=== PATIENT | female | born 2000 | race African-American/Black ===

== ENCOUNTER 2019-11-06 12:13 | Emergency (ER) | payer SELFPAY ==
[~2019-11-06] VITALS: Ht 152.4 cm; Wt 91.6 kg
[2019-11-06] MEDS ORDERED: ACETAMINOPHEN 325 MG TAB PO ONE (12:30)
[2019-11-06] MEDS ORDERED: LACTATED RINGER'S 1,000 ML INJ ONE (12:45)
[2019-11-06 12:49] LABS: BASOPHILS % 0.4 % (0.0-1.0); EOSINOPHILS # (AUTO) 0.3 (0.0-0.4); HEMATOCRIT 38.8 % (34.2-44.1); HEMOGLOBIN 12.4 g/dL (12.0-16.0); LYMPHOCYTES # (AUTO) 1.9 (1.0-3.2); LYMPHOCYTES % 23.7 % (18.0-39.1); MEAN CORPUSCULAR HEMOGLOBIN 25.1 pg (28-32); MEAN CORPUSCULAR VOLUME 78.4 fL (81-99); MONOCYTES # (AUTO) 0.9 (0.2-0.8); MONOCYTES % 11.2 % (4.4-11.3); NEUTROPHILS # (AUTO) 4.9 (2.1-6.9); NEUTROPHILS % 60.3 % (38.7-80.0); PLATELET COUNT 327 x10e3/uL (140-360); RED BLOOD COUNT 4.95 x10e6/uL (3.6-5.1); RED CELL DISTRIBUTION WIDTH 19.3 % (11.7-14.4)
--- NOTE | 2019-11-06 12:51 | Emergency Department Note ---
History of Present Illnes History of Present Illness Chief Complaint: COVID PUI History of Present Illness This is a 19 year old female here for 2 days of URI, chest discomfort, body aches, malaise, no sick contacts.''CP is constant, diffuse. Cough, dry, pt did notice in the AM red tinged sputum. Historian: Patient Arrival Mode: Car Onset (how long ago): day(s) (2) Location: chest Quality: ache, sharp Radiation: Reports non-radiation Severity: moderate Duration (how long): day(s) (3) Timing of current episode: constant Progression: worsening Chronicity: new Context: Reports other (not on OCP ); Denies non-compliance w/ medications Relieving factors: none Exacerbating factors: none Associated symptoms: Reports cough, Reports malaise Past Medical/Family History Physician Review I have reviewed the patient's past medical and family history. Any updates have been documented here. Past Medical History Recent Fever: No Clinical Suspicion of Infectio: No New/Unexplained Change in Ment: No Past Medical History: Other Mental Illness Other Medical History: schizoaffective disorder - Not taking meds Past Surgical History: None Social History Physically hurt or threatened: No Review of Systems Review of Systems Constitutional: Reports no symptoms EENTM: Reports as per HPI Cardiovascular: Reports no symptoms Respiratory: Reports as per HPI Gastrointestinal: Reports no symptoms Genitourinary: Reports no symptoms Musculoskeletal: Reports no symptoms Integumentary: Reports no symptoms Neurological: Reports no symptoms Psychological: Reports no symptoms Endocrine: Reports no symptoms Hematological/Lymphatic: Reports no symptoms Physical Exam Related Data Allergies: Coded Allergies: No Known Allergies (Unverified , 11/06/19) Triage Vital Signs Vital Signs Date Time Temp Pulse Resp B/P (MAP) Pulse Ox O2 Delivery O2 Flow Rate FiO2 11/06/19 12:20 99.5 99 20 127/85 98 Room Air Physical Exam CONSTITUTIONAL Constitutional: Present well-developed, Present well-nourished HENT HENT: Present normocephalic, Present atraumatic, Present oropharynx clear/moist, Present nose normal HENT L/R: Present left ext ear normal, Present right ext ear normal EYES Eyes: Reports PERRL, Reports conjunctivae normal NECK Neck: Present ROM normal PULMONARY Pulmonary: Present effort normal, Present breath sounds normal CARDIOVASCULAR Cardiovascular: Present regular rhythm, Present heart sounds normal, Present capillary refill normal, Present tachycardia GASTROINTESTINAL Abdominal: Present soft, Present nontender, Present bowel sounds normal GENITOURINARY Genitourinary: Present exam deferred SKIN Skin: Present warm, Present dry MUSCULOSKELETAL Musculoskeletal: Present ROM normal NEUROLOGICAL Neurological: Present alert, Present oriented x 3, Present no gross motor or sensory deficits PSYCHOLOGICAL Psychological: Present mood/affect normal, Present judgement normal Results Laboratory Laboratory Laboratory Tests Test 11/06/19 12:04 Assessment & Plan Medical Decision Making MDM Pt with 2 days of URI/malaise, cough, dry, high prob covid. Pt with CP >8hrs, low risk, if trop neg HEART <3. Pt with ?hemoptysis, likely 2/2 dry cough. We will send d-dimer to r/o PE. Reassessment Reassessment This is a 19-year-old female with sore throat congestion cough and small amount of hemoptysis. No peritonsillar abscess. She was told at an outside hospital that she had strep, we'll treat with azithromycin. Your warnings given results and explained.D-dimer <500, PE R/o Assessment & Plan Final Impression: (1) URI, acute Depart Disposition: HOME, SELF-CARE Last Vital Signs Date Time Temp Pulse Resp B/P (MAP) Pulse Ox O2 Delivery O2 Flow Rate FiO2 11/06/19 12:20 99.5 99 20 127/85 98 Room Air Home Meds Active Scripts Azithromycin (Z-GISELA) 250 Mg Tablet, 250 MG PO UD, #1 UDPKT [employer] Prov:ALEKSANDR SHELTON MD 11/06/19 Medications in the ED Acetaminophen 975 mg ONCE ONCE PO ; Start 11/06/19 at 12:30; Stop 11/06/19 at 12:44; Status DC Lactated Ringer's 1,000 ml @ 0 mls/hr Q0M ONCE INJ ; Start 11/06/19 at 12:45; Stop 11/06/19 at 12:46; Status DC ALEKSANDR SHELTON MD Nov 06, 2019 12:51
[2019-11-06 13:01] LABS: ALANINE AMINOTRANSFERASE 29 IU/L (0-55); ALBUMIN 3.7 g/dL (3.5-5.0); ALBUMIN/GLOBULIN RATIO 0.9 (0.8-2.0); ALKALINE PHOSPHATASE 90 IU/L (40-150); ANION GAP 12.9 mmol/L (8-16); BLOOD UREA NITROGEN 5 mg/dL (7-26); BUN/CREATININE RATIO 6 (6-25); CALCIUM 9.3 mg/dL (8.4-10.2); CARBON DIOXIDE 22 mmol/L (22-29); CHLORIDE 106 mmol/L (98-107); CREATININE, SERUM 0.83 mg/dL (0.57-1.11); EST GLOMERULAR FILTRATION RATE > 60 ML/MIN (60-); GLUCOSE 104 mg/dL (74-118); POTASSIUM 3.9 mmol/L (3.5-5.1); SODIUM 137 mmol/L (136-145)
--- NOTE | 2019-11-06 13:48 | Diagnostic Imaging Report ---
TECHNIQUE: Frontal view of the chest. INDICATION: ^Y ^cough ^[id number] ^1300 COMPARISON: None DISCUSSION: Limited evaluation due to portable technique. Lines and hardware: Overlying EKG leads are noted. Heart and mediastinum: Within normal limits. Lungs and pleura: No focal airspace consolidation. No pleural effusion. No pneumothorax. Soft tissues and bones: No acute abnormality. IMPRESSION: Negative for acute intrathoracic process. Signed by: Musa Lopez MD on 11/06/2019 1:44 PM
[2019-11-06] MEDS ORDERED: AZITHROMYCIN250 MG PO (14:31)
[2019-11-06 14:40] VITALS: BP 125/56
== END 2019-11-06 14:44 | disposition home or self-care (01) ==
LOC: ER 12:47
DX: J06.9 Acute upper respiratory infection, unspecified (principal); R05 Cough; R07.89 Other chest pain; Z11.59 Encounter for screening for other viral diseases
CPT/HCPCS: 36415; 71045; 80053; 84702; 85025; 85379; 99284; J7121; U0002